=== PATIENT | female | born 1945 | race Asian ===

== ENCOUNTER 2020-02-18 11:34 | Emergency (ER) | payer MEDICARE, OTHER ==
[~2020-02-18] VITALS: Ht 152.4 cm; Wt 59.1 kg
[~2020-02-18 11:34] MED LIST: GLIP10TA9 PO; LISI-661 PO; LOVA20TA73 PO; METF-446 PO
[2020-02-18] MEDS ORDERED: ACETAMINOPHEN 325 MG TABLET PO ONE (14:15)
[2020-02-18 17:27] VITALS: BP 160/79
== END 2020-02-18 17:51 | disposition left against medical advice (07) ==
LOC: EMS 11:37
DX: S00.83XA Contusion of other part of head, initial encounter (principal); S80.211A Abrasion, right knee, initial encounter; E11.9 Type 2 diabetes mellitus without complications; I10 Essential (primary) hypertension; Z79.899 Other long term (current) drug therapy; Z79.84 Long term (current) use of oral hypoglycemic drugs; W19.XXXA Unspecified fall, initial encounter; Y93.89 Activity, other specified; Y92.89 Other specified places as the place of occurrence of the external cause; Y99.8 Other external cause status
CPT/HCPCS: 70450